=== PATIENT | female | born 2005 | race Caucasian/White ===

== ENCOUNTER 2024-09-27 16:12 | Emergency (ER) | payer MEDICAID ==
[~2024-09-27] VITALS: Ht 160 cm; Wt 65.0 kg
[2024-09-27 16:32] VITALS: O2SAT 98
[2024-09-27] MEDS: ONDANSETRON 4MG ODT PO ONE (17:34)
[2024-09-27] MEDS: MAGNESIUM/ALUMINUM HYDROXIDE/SIMETHICONE 30ML UDC PO ONE (17:34)
[2024-09-27] MEDS ORDERED: FAMO20TA8 MT (17:52)
[2024-09-27 18:32] VITALS: BP 120/54; PULSE 68; RESP 16; TEMP 36.7; O2SAT 100
[2024-09-27 18:50] LABS: HCG SCREEN NEGATIVE
== END 2024-09-27 18:38 | disposition home or self-care (01) ==
LOC: ER 16:12
DX: K29.70 Gastritis, unspecified, without bleeding (principal); Z87.19 Personal history of other diseases of the digestive system
CPT/HCPCS: 99283; 81025; 84703; Q0162

== ENCOUNTER 2025-04-12 21:08 | Emergency (ER) | payer MEDICAID ==
[~2025-04-12] VITALS: Ht 157.5 cm; Wt 72.3 kg
[~2025-04-12 21:08] MED LIST: FAMO20TA8 MT
[2025-04-12 21:24] VITALS: O2SAT 99
[2025-04-12 22:15] LABS: COLOR URINE YELLOW (YELLOW); GLUCOSE URINE NEGATIVE (NEGATIVE); KETONES URINE 3+ (NEGATIVE); LEUKOCYTE ESTERASE URINE NEGATIVE (NEGATIVE); NITRITE URINE NEGATIVE (NEGATIVE); OCCULT BLOOD URINE NEGATIVE (NEGATIVE); PH URINE 6.5 (4.5-8.0); PROTEIN URINE TRACE (NEGATIVE); SPECIFIC GRAVITY URINE 1.026 (1.005-1.030); UROBILINOGEN URINE 1.0 E.U./dL (0.2-1.0)
[2025-04-12] MEDS: SODIUM CHLORIDE 0.9% 1,000 ML IV ONE (22:21)
[2025-04-12] MEDS: FAMOTIDINE 20MG/2ML VIAL IV ONE (22:21)
[2025-04-12] MEDS: ONDANSETRON HCL 4MG/2ML INJ IV ONE (22:21)
[2025-04-12 22:27] LABS: *AMPHETAMINES SCREEN URINE NEGATIVE (NEGATIVE); *BARBITURATES SCREEN URINE NEGATIVE (NEGATIVE); *BENZODIAZEPINES SCREEN URINE NEGATIVE (NEGATIVE)
[2025-04-12 22:28] LABS: *COCAINE SCREEN URINE NEGATIVE (NEGATIVE); CANNABINOID URINE SCREEN NEGATIVE (NEGATIVE); ECSTASY MDMA SCREEN URINE NEGATIVE (NEGATIVE); METHADONE URINE SCREEN NEGATIVE (NEGATIVE); OPIATES URINE SCREEN NEGATIVE (NEGATIVE); PHENCYCLIDINE URINE SCREEN NEGATIVE (NEGATIVE)
[2025-04-12 22:34] LABS: CLARITY URINE SL HAZY (CLEAR)
[2025-04-12 22:35] LABS: BACTERIA URINE TRACE; RBC URINE NONE SEEN /hpf (0-2); SQUAMOUS EPITHELIAL CELL URINE 1+ /lpf (RARE/1+); WBC URINE 0-2 /hpf (0-2)
[2025-04-12 22:36] LABS: MUCUS URINE TRACE /lpf (< = 2+)
[2025-04-12 23:04] LABS: BASOPHILS % 0.3 % (0.0-2.0); EOSINOPHILS % 1.0 % (0.0-5.0); HEMATOCRIT. 37.5 % (36.0-48.0); HEMOGLOBIN. 12.4 g/dL (12.0-16.0); LYMPHOCYTES % 25.6 % (20.0-50.0); MEAN PLATELET VOLUME 9.3 fl (7.4-10.4); MONOCYTES % 8.2 % (2.0-8.0); NEUTROPHILS % 64.9 % (40.0-76.0); PLATELET 248 x1000/uL (130-400); RED BLOOD CELL COUNT 4.33 mill/uL (4.2-5.4); RED CELL DISTRIBUTION WIDTH 14.9 % (11.6-14.6)
[2025-04-12 23:20] LABS: HCG SCREEN POSITIVE
[2025-04-12 23:24] LABS: CREATININE 0.5 mg/dL (0.6-1.0); UREA NITROGEN BLOOD 6 mg/dL (9-23)
[2025-04-12 23:25] LABS: PROTEIN TOTAL 6.7 g/dL (6.0-8.3)
[2025-04-12 23:26] LABS: ASPARTATE AMINOTRANSFERASE 17 IU/L (<34); BILIRUBIN DIRECT 0.1 mg/dL (<=3.0)
[2025-04-12 23:27] LABS: BILIRUBIN TOTAL 0.3 mg/dL (0.1-1.0)
[2025-04-13] MEDS ORDERED: DOXY1TAB3 MT (00:37)
[2025-04-13] MEDS ORDERED: ONDA4TAB50 MT (00:37)
[2025-04-13] MEDS ORDERED: FAMO-135 MT (00:38)
[2025-04-13 01:19] VITALS: BP 113/56; PULSE 91; RESP 17; TEMP 36.8; O2SAT 99
== END 2025-04-13 01:25 | disposition home or self-care (01) ==
LOC: ER 21:08
DX: O21.0 Mild hyperemesis gravidarum (principal); O26.891 Other specified pregnancy related conditions, first trimester; R10.84 Generalized abdominal pain; R10.20 Pelvic and perineal pain unspecified side; Z3A.01 Less than 8 weeks gestation of pregnancy; Z79.899 Other long term (current) drug therapy
CPT/HCPCS: 99285; 96374; 76801; 96361; 96375; 80076; 80305; 80048; 81003; 81025; 84703; 84702; 83690; 85025; 86850; 86900; 86901; 36415; 76817; J1308; J2405; J7030